=== PATIENT | female | born 1995 | race Caucasian/White ===

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

== ENCOUNTER 2017-01-16 19:55 | Emergency (ER) | payer BC ==
[~2017-01-16] VITALS: Ht 152.4 cm; Wt 62.0 kg
[~2017-01-16 19:55] MED LIST changes: +BUTA1CAP PO; -NAPR500 PO; -NUVAMIS PV
[2017-01-16 20:08] VITALS: BP 154/100; PULSE 106; RESP 20; O2SAT 100
[2017-01-16] MEDS ORDERED: SPIR50TA PO (20:25)
--- NOTE | 2017-01-16 20:36 | PD ---
HPI Chief Complaint: Injury Time Seen by Provider: 20:27 Travel History International Travel<30 days: No Contact w/Intl Traveler<30days: No Traveled to known affect area: No History of Present Illness HPI The patient is a 22-year-old female that someone fell on her right foot at 8:00 this morning. She has pain and swelling in the right foot. There is no ankle pain or no other injury. She has never fractured her foot before. She states she has numbness in the toes. Her pain is an 8/10, constant and sharp. The patient is a student. She states she cannot be , she takes control pills correctly and she has a hormonal imbalance where she was told the only chance she has of as with in vitro fertilization. PFSH Past Medical History Medical History: Denies Significant Hx Cardiovascular Problems: Yes (TACHYCARDIA) Developmental Delay: No Diminished Hearing: No Endocrine: Yes (PCOS) Immunizations Current: Yes Tetanus Vaccination: Unknown ?: Not LMP: 10/2016 Past Surgical History Surgical History: No Previous Surgery Oral Surgery: Yes Social History Alcohol Use: Yes (occassionaly) Tobacco Use: No Substance Use: No Allergies-Medications (Allergen,Severity, Reaction): Coded Allergies: No Known Allergies (Verified , 06/04/16) Reported Meds & Prescriptions Reported Meds & Active Scripts Active Fioricet (Nybfqqevki-Gnxrqygmfhnmw-Xbjolhku) 50-300-40 Mg Cap 1 Cap PO Q4H PRN Reported Spironolactone 50 Mg Tab 50 Mg PO DAILY Review of Systems Except as stated in HPI: all other systems reviewed are Neg Physical Exam Narrative GENERAL: Well-nourished, well-developed patient in slight apparent distress with her right foot discomfort. Her vital signs show heart rate of 106 and blood pressure 154/100 but otherwise normal. SKIN: Focused skin assessment warm/dry. HEAD: Normocephalic. EYES: No scleral icterus. No injection or drainage. NECK: Supple, trachea midline. No JVD or lymphadenopathy. CARDIOVASCULAR: Regular rate and rhythm without murmurs, gallops, or rubs. RESPIRATORY: Breath sounds equal bilaterally. No accessory muscle use. GASTROINTESTINAL: Abdomen soft, non-tender, nondistended. MUSCULOSKELETAL: No cyanosis, or edema. Right foot is diffusely swollen although no bony deformity is present. There is good capillary refill on the toes but there is some numbness to touch and pinprick on the toes. BACK: Nontender without obvious deformity. No CVA tenderness. Data Data Last Documented VS Vital Signs Date Time Temp Pulse Resp B/P (MAP) Pulse Ox O2 Delivery O2 Flow Rate FiO2 01/16/17 20:25 Room Air 01/16/17 20:08 106 20 154/100 (118) 100 Orders Orders Foot, Complete ([id number]) (01/16/17 20:27) Ice/Cold Pack (01/16/17 21:02) Crutches (01/16/17 21:02) Splint Or Brace Apply/Monitor (01/16/17 21:03) [facility] Medical Decision Making Medical Screen Exam Complete: Yes Emergency Medical Condition: Yes Medical Record Reviewed: Yes Interpretation(s) X-rays of the foot show fracture of the second third and fourth metatarsals. These fractures are essentially nondisplaced. Differential Diagnosis Contusion foot, fracture foot, Lisfranc fracture/dislocation Narrative Course The patient has fracture of the second third and fourth metatarsals. She will get a short leg splint, elevation, ice and crutches. She is to follow-up with podiatry. Diagnosis Primary Impression: Fracture of foot bone, left, closed Additional Instructions: As we discussed, ice, elevation and follow-up with podiatry. Med/Other Pt SpecificInfo: No Change to Meds Disposition: 01 DISCHARGE HOME Condition: Stable Jorge Luis Be MD Jan 16, 2017 20:36
--- NOTE | 2017-01-16 20:54 | RADRPT ---
EXAM DATE/TIME: 01/16/2017 20:38 [facility] COMPARISON: No previous studies available for comparison. INDICATIONS : Pain post fall. MEDICAL HISTORY : None. SURGICAL HISTORY : None. ENCOUNTER: Initial ACUITY: 1 day PAIN SCORE: 8/10 LOCATION: Right Foot. FINDINGS: There is dorsal soft tissue swelling. Mildly displaced fractures through the bases of the second thir d and fourth metatarsals identified. CONCLUSION: Second through fourth metatarsal fractures. Frandy Penn MD on January 16, 2017 at 20:51 Board Certified Radiologist. This report was verified electronically.
== END 2017-01-16 22:00 | disposition home or self-care (01) ==
LOC: PHED 19:55
DX: S92.321A Displaced fracture of second metatarsal bone, right foot, initial encounter for closed fracture (principal); S92.331A Displaced fracture of third metatarsal bone, right foot, initial encounter for closed fracture; S92.341A Displaced fracture of fourth metatarsal bone, right foot, initial encounter for closed fracture; R00.0 Tachycardia, unspecified; W19.XXXA Unspecified fall, initial encounter
CPT/HCPCS: 29515; 73630; 99283; E0113